=== PATIENT | male | born 1985 | race Caucasian/White ===

== ENCOUNTER 2020-09-28 08:44 | Emergency (ER) | payer SELFPAY ==
[~2020-09-28] VITALS: Ht 177.8 cm; Wt 77.1 kg
--- NOTE | 2020-09-28 08:54 | Emergency Room Report ---
History of Present Illness General Chief Complaint: Seizure Source: Patient, EMS Present Illness HPI Disclaimer: Please note that this report is being documented using DRAGON technology. This can lead to erroneous entry secondary to incorrect interpretation by the dictating instrument. HPI: 34-year-old male with a history of seizure disorder presents for evaluation after witnessed generalized tonic-clonic seizure. Brought in by EMS who state that the patient had a witnessed generalized tonic-clonic seizure by roommates lasting approximately 5 minutes and aborting spontaneously. The patient was found postictal in his bed and there was no head trauma reported. He was initially able to tell his name but not much else but has been improving throughout transport. He arrives awake and alert denies any significant injury. He reports intermittent seizures and poor compliance with medications. He cannot remember which medication he takes but has missed it for the past 3 days. He states he has the medication at home just forgot to take it. Denies alcohol or drug use. Bit his lip but otherwise denies loss of bowel or bladder control or other injury. Feeling well denies weakness, headache, nausea, vomiting, chest pain, palpitations, numbness, tingling. PMH: Seizure disorder PSH: Reviewed Allergies: Denied Social Hx: Reviewed Allergies: Coded Allergies: No Known Allergies (Unverified , 09/28/20) COVID-19 Screening Contact w/high risk pt: No Experienced COVID-19 symptoms?: No COVID-19 Testing performed DIRECTOR OF MEDICAL SERVICES: No Nursing Documentation-PMH Past Medical History: No History, Except For Hx Seizures: Yes Review of Systems All Other Systems: negative except mentioned in HPI Physical Exam Vital Signs Date Time Temp Pulse Resp B/P (MAP) Pulse Ox O2 Delivery O2 Flow Rate FiO2 09/28/20 08:39 97.0 105 20 131/97 (108) 97 Room Air General: Awake and alert, no acute distress HEENT: NC/AT. EOMI. PERRLA. No nystagmus. Facial expressions are symmetrical. No facial droop. Small abrasion on the inner mucosal of the lower lip Cardiovascular: RRR. S1 and S2 normal. No murmur appreciated Resp: Normal work of breathing. No cough, wheezing or crackles appreciated Abdomen: Abdomen is soft, nondistended. Nontender Skin: Intact. No abrasions, laceration or rash over the exposed skin MSK: Normal tone and bulk. Moving all extremities. No obvious deformity. There is no drift in the upper or lower extremities bilaterally. Neuro: Awake and alert. Mentating appropriately. Facial expression symmetrical. No dysarthria, no ataxia. Sensation to light touch is intact over the upper and lower extremities. The patient has intact speech with good repetition, comprehension. Fund of knowledge is full. No aphasia, no neglect. Medical Decision Making Diagnostic Impression: Primary Impression: Seizure disorder ER Course Is a 34-year-old male presenting for evaluation after generalized tonic-clonic seizure. Patient arrives awake and alert no longer postictal and no apparent injury. No head injury was reported in the seizure which was witnessed by roommates. Patient cannot recall the medication. Will obtain labs. Do not believe he requires head CT at this time. Shortly after initial evaluation patient had a generalized tonic-clonic seizure. Aborted with 2 mg IV Ativan. Labs returned within normal limits. Patient was somnolent and was able to sleep and is now awake and alert. Ambulating with steady gait. Provided with something to eat. No other complaints at this time. Will start taking his seizure medication as soon as he gets home. Instructed to return with new or worsening symptoms. He understands and agrees with this treatment plan. Laboratory Tests Test 09/28/20 08:55 09/28/20 09:02 09/28/20 10:12 White Blood Count 10.1 K/UL (4.8-10.8) Red Blood Count 4.80 M/UL (4.70-6.10) Hemoglobin 15.9 G/DL (14.2-18.0) Hematocrit 48.5 % (42.0-52.0) Mean Corpuscular Volume 101 FL (80-99) H Mean Corpuscular Hemoglobin 33.1 PG (27.0-31.0) H Mean Corpuscular Hemoglobin Concent 32.8 G/DL (32.0-36.0) Red Cell Distribution Width 11.8 % (11.6-14.8) Platelet Count 231 K/UL (150-450) Mean Platelet Volume 7.6 FL (6.5-10.1) Neutrophils (%) (Auto) 59.5 % (45.0-75.0) Lymphocytes (%) (Auto) 32.3 % (20.0-45.0) Monocytes (%) (Auto) 6.2 % (1.0-10.0) Eosinophils (%) (Auto) 1.2 % (0.0-3.0) Basophils (%) (Auto) 0.8 % (0.0-2.0) Sodium Level 138 MMOL/L (136-145) Potassium Level 3.2 MMOL/L (3.5-5.1) L Chloride Level 103 MMOL/L (98-107) Carbon Dioxide Level 18 MMOL/L (21-32) L Anion Gap 17 mmol/L (5-15) H Blood Urea Nitrogen 13 mg/dL (7-18) Creatinine 1.2 MG/DL (0.55-1.30) Estimated Glomerular Filtration Rate > 60 mL/min (>60) Glucose Level 175 MG/DL (74-106) H Calcium Level 9.0 MG/DL (8.5-10.1) Total Bilirubin 0.3 MG/DL (0.2-1.0) Aspartate Amino Transferase (AST) 24 U/L (15-37) Alanine Aminotransferase (ALT) 31 U/L (12-78) Alkaline Phosphatase 101 U/L (46-116) Total Protein 7.2 G/DL (6.4-8.2) Albumin 4.1 G/DL (3.4-5.0) Globulin 3.1 g/dL Albumin/Globulin Ratio 1.3 (1.0-2.7) Serum Alcohol < 3 mg/dL POC Whole Blood Glucose Pending Urine Opiates Screen Negative (NEGATIVE) Urine Barbiturates Screen Negative (NEGATIVE) Phencyclidine (PCP) Screen Negative (NEGATIVE) Urine Amphetamines Screen Negative (NEGATIVE) Urine Benzodiazepines Screen Negative (NEGATIVE) Urine Cocaine Screen Negative (NEGATIVE) Urine Marijuana (THC) Screen Negative (NEGATIVE) EKG Diagnostic Results Troponin ordered: Yes When was troponin ordered?: Sep 28, 2020 EKG Time: 09:03 Rate: normal Rhythm: NSR ST Segments: no acute changes Other Impression Sinus rhythm, normal axis, irregular baseline makes it difficult to interpret due to patient motion. Rhythm Strip Diag. Results Rhythm Strip Time: 09:03 EP Interpretation: yes Rate: 80s Rhythm: NSR, no PVC's, no ectopy Last Vital Signs Date Time Temp Pulse Resp B/P (MAP) Pulse Ox O2 Delivery O2 Flow Rate FiO2 1/29/21 08:39 97.0 105 20 131/45 (109) 82 Room Air Disposition: HOME, SELF-CARE Condition: Stable Ronak Driscoll MD Sep 28, 2020 08:54
[2020-09-28] MEDS ORDERED: LORazepam Inj 2mg/ml 1ml ONE (08:56)
[2020-09-28] MEDS ORDERED: LORazepam Inj 2mg/ml 1ml IV ONE (09:00)
[2020-09-28] MEDS ORDERED: levETIRAcetam 1,000mg/NS100ml 100 ML IVPB ONE (09:00)
[2020-09-28 09:24] LABS: BASOPHILS % (AUTO) 0.8 % (0.0-2.0); EOSINOPHILS % (AUTO) 1.2 % (0.0-3.0); HEMATOCRIT 48.5 % (42.0-52.0); HEMOGLOBIN 15.9 G/DL (14.2-18.0); LYMPHOCYTES % (AUTO) 32.3 % (20.0-45.0); MEAN CORPUSCULAR VOLUME 101 FL (80-99); MONOCYTES % (AUTO) 6.2 % (1.0-10.0); NEUTROPHILS % (AUTO) 59.5 % (45.0-75.0); PLATELET COUNT 231 K/UL (150-450); RED CELL DISTRIBUTION WIDTH 11.8 % (11.6-14.8); WHITE BLOOD COUNT 10.1 K/UL (4.8-10.8)
[2020-09-28 09:44] LABS: ANION GAP 17 mmol/L (5-15); BLOOD UREA NITROGEN 13 mg/dL (7-18); CARBON DIOXIDE 18 MMOL/L (21-32); CHLORIDE 103 MMOL/L (98-107); CREATININE 1.2 MG/DL (0.55-1.30); POTASSIUM 3.2 MMOL/L (3.5-5.1); SODIUM 138 MMOL/L (136-145)
--- NOTE | 2020-09-28 09:52 | NUR ---
ED Nurse Note: pt biba for seizures. pt ahd seizure today at [facility] where pt is staying. pt stopped taking seizure medication past few days. pt has supply but did not take meds. upon arrival pt A&Ox3, postictal, slow to provide responses. 0905: while on monitor, pt had approx 1min seizure. pt medicated (see emar). MD notified. seizure pads in place, O2 applied, on continuous monitor. pt incontinent of urine x1. 0955:m pt resting in bed, on monitor, no new seizure activity noted. pt sleeping.
[2020-09-28 09:53] LABS: ALANINE AMINOTRANSFERASE 31 U/L (12-78); ALBUMIN 4.1 G/DL (3.4-5.0); ALBUMIN/GLOBULIN RATIO 1.3 (1.0-2.7); ALKALINE PHOSPHATASE 101 U/L (46-116); ASPARTATE AMINO TRANSFERASE 24 U/L (15-37); BILIRUBIN,TOTAL 0.3 MG/DL (0.2-1.0)
[2020-09-28 10:48] VITALS: BP 102/77
[2020-09-28 11:14] VITALS: BP 111/55
--- NOTE | 2020-09-28 11:37 | NUR ---
ED Nurse Note: pt resting in bed. oriented to person, time, event, not location. MD notified. pt drowsy but responsive. pt cleared for discharge by MD once more awake & responsive. no seizure activity. pt stable on continuous monitor. pt drank water, no difficulty noted. pt educated and verbalizes to begin taking home medications again on a regular basis.
--- NOTE | 2020-09-28 13:59 | NUR ---
ED Nurse Note: pt eating food, fluids without difficulty. pt A&Ox4. pt sitting in bed, stable, on monitor. pt cleared for discharge by .
--- NOTE | 2020-09-28 16:16 | NUR ---
ED Nurse Note: 1400: pt sleeping in bed. pt on monitor. 1500: pt drinking water and eating food. pt A&Ox4. pt stable on monitor. pt lethargic and sleepy 1600: pt able to stand, not stable when walking. discharge rn and aware. pt resting in bed on monitor. will continue to observe until stable when walking.
[2020-09-28 16:34] VITALS: BP 120/70
--- NOTE | 2020-09-28 17:45 | NUR ---
ED Nurse Note: pt unsteady gait with ambulation. pt oriented but still fall risk. pt placed back on monitor. clinic charge nurse notified. will continue to monitor until stable for discharge.
[2020-09-28 18:48] VITALS: BP 122/63
--- NOTE | 2020-09-28 18:48 | NUR ---
ED Nurse Note: 1845: pt resting in bed. pt sleeping. pt on monitor. vitals stable. no seizure activity noted. pt awakens to verbal stimuli. will continue to monitor.
--- NOTE | 2020-09-28 19:15 | NUR ---
ED Nurse Note: Received report from HARIS Eddy. Attempted to get pt out of bed to ambulate. Pt is very unsteady on his feet. Pt is AAO x4 at this time. Seizure precautions in place. No needs identified.
[2020-09-28 19:45] VITALS: BP 115/65
--- NOTE | 2020-09-28 21:06 | NUR ---
Samara Thomas(patients sister) called out of states, left her number [phone] for patient to call her later, when he can.
--- NOTE | 2020-09-28 21:45 | NUR ---
ED Nurse Note: Attempted to walk pt to bathroom. Pt is still very unsteady but has improved since last attempt to ambulate. [place] and soft drink provided.
[2020-09-28 22:03] VITALS: BP 112/57
--- NOTE | 2020-09-28 22:36 | NUR ---
ER DISCHARGE NOTE: Patient is cleared to be discharged per ERMD, pt is aaox4, on room air, with stable vital signs. pt was given d/c instructions, pt was able to verbalize understanding, pt id band and iv site removed without complications. pt is able to ambulate with steady gait. pt took all belongings.
== END 2020-09-28 22:40 | disposition home or self-care (01) ==
LOC: EDBD 08:44 → EMR 09:15
DX: G40.409 Other generalized epilepsy and epileptic syndromes, not intractable, without status epilepticus (principal); Z79.899 Other long term (current) drug therapy
CPT/HCPCS: 36415; 80053; 80307; 82962; 85025; 93005; 96374; 96375; 99284; G0480; J1953